=== PATIENT | male | born 2000 | race Caucasian/White ===

== ENCOUNTER 2020-08-14 16:33 | Emergency (ER) | payer BC ==
[~2020-08-14] VITALS: Ht 188 cm; Wt 93.3 kg
--- NOTE | 2020-08-14 16:48 | NUR ---
NO ANSWER FROM [facility]
[2020-08-14] MEDS ORDERED: PINK LADY ENEMA 490 ML BOTTLE PR ONE (18:30)
[2020-08-14 19:20] VITALS: BP 129/79
== END 2020-08-14 19:26 | disposition home or self-care (01) ==
LOC: ED 19:01
DX: K59.00 Constipation, unspecified (principal); R10.32 Left lower quadrant pain; R10.12 Left upper quadrant pain
CPT/HCPCS: 74022; 99284